=== PATIENT | female | born 1955 | race Caucasian/White ===

== ENCOUNTER 2018-08-13 10:04 | Emergency (ER) | payer BC, SELFPAY ==
[2018-08-13 10:11] VITALS: BP 124/72; PULSE 88; RESP 18; TEMP 37.2; O2SAT 97
[2018-08-13] MEDS: Normal Saline 1,000 ML 1000 ML IV (10:33)
[2018-08-13] MEDS: Ketorolac 30 MG/ML VIAL 15 MG IM (10:34)
[2018-08-13] MEDS: Ondansetron 4 MG/2 ML VIAL IVP (10:43)
[2018-08-13 10:46] VITALS: BP 131/107; PULSE 73; RESP 20; O2SAT 98
[2018-08-13 10:50] LABS: Abs Immature Grans 0.02 k/cumm (0.0-0.09); Absolute Basophil Count 0.04 k/cumm (0.0-0.2); Absolute Eosinophil Count 0.04 k/cumm (0.0-0.7); Absolute Lymphocyte Count 0.53 k/cumm (1.2-3.4); Absolute Monocyte Count 0.97 k/cumm (0.11-0.7); Absolute Neutrophil Count 5.11 k/cumm (1.2-6.7); Basophils % 0.6; Eosinophils % 0.6; HCT 39.8 % (36.0-46.0); HGB 13.5 g/dL (12.0-15.5); Immature Grans % 0.3; Lymphocytes % 7.9; Mean Corp. HGB Concentration 33.9 g/dL (32.0-36.0); Mean Corpuscular Hemoglobin 29.4 pg (27.0-33.0); Mean Corpuscular Volume 86.7 fL (80-95); Mean Platelet Volume 11.9 fL (8.0-11.0); Monocytes % 14.5; Neutrophils % 76.1; Platelet Count 290 x1000/uL (130-400); RBC 4.59 m/cumm (4.00-5.20); RBC Distribution Width 13.3 % (11.7-14.6); White Blood Cell Count 6.71 k/cumm (4.4-10.8)
[2018-08-13 10:58] LABS: Lipase 153 U/L (73-393)
[2018-08-13 11:06] LABS: ALT 27 U/L (12-78); AST 30 U/L (15-37); Albumin 3.7 g/dL (3.4-5.0); Alkaline Phosphatase 106 U/L (46-116); BUN 10 mg/dL (7-18); Bilirubin, Total 0.4 mg/dL (0.2-1.0); CREATININE 0.67 mg/dL (0.55-1.02); Calcium 9.3 mg/dL (8.5-10.1); Chloride 100 mmol/L (98-107); Glucose 104 mg/dL (70-100); Potassium 4.2 mmol/L (3.5-5.1); Sodium 135 mmol/L (136-145); Total Protein 7.5 g/dL (6.4-8.2)
[2018-08-13 11:13] LABS: Troponin I < 0.02 ng/mL (0.00-0.06)
[2018-08-13 11:22] LABS: D-Dimer 415 ng/mlFEU (<500)
[2018-08-13 11:29] VITALS: BP 108/51; PULSE 77; RESP 18; O2SAT 93
[2018-08-13 12:15] LABS: Bilirubin Negative (Negative); Blood Trace-lysed (Negative); Clarity Clear; Glucose Negative (Negative); Ketones 40 mg/dL (Negative); Leukocyte Esterase Negative (Negative); Nitrite Negative (Negative); Specific Gravity 1.015 (1.005-1.025); Urobilinogen 0.2 EU/dL (Up TO 0.2)
--- NOTE | 2018-08-13 12:16 | ED.GENADUL_ITS ---
Discharge Plan Disposition Patient Disposition: HOME Condition: Good Discharge Details Chief Complaint: GenMedical Clinical Impression: Flu-like symptoms Primary Care Provider: None,None ED Provider: Dilan Skaggs Home Meds and New Rx's Prescriptions: New lidocaine [Lidoderm] 1 PATCH patch 1 patch Topical Q24H Qty: 4 RF: 0 ondansetron HCl [Zofran] 4 mg tablet 4 mg PO TID PRN (Reason: nausea and vomiting) 5 Days Qty: 7 RF: 0 No Action aspirin 325 mg Tablet 325 mg PO DAILY RF: 0 Discharge Instructions Instructions: Viral Syndrome (ED) Additional Instructions: Please take 800 mg of ibuprofen every 6 hours and up to 1000 mg of Tylenol every 6 hours. Please drink 10-12 cups of water per day. If you notice any worsening of your symptoms, or any new symptoms such as vomiting, diarrhea, fever, chills, shortness of breath, chest pain, numbness, weakness, or fainting , please return immediately to the emergency department for reevaluation. Please follow up with your primary care provider as soon as possible for reassessment and reevaluation. As always, it was a pleasure participating in your medical care today. Discharge Data Discharge Date/Time-TO BE ENTERED AT DEPARTURE: 08/13/18 13:16 Medical Decision Making This is a pleasant 8-year-old female who presents with multiple complaints for the last 3 days, signs and symptoms are concerning for influenza or a flulike illness. Initially with the patient's complaint of vomiting in respect to her history of colon cancer and surgery, and was going to get a CT scan of her chest abdomen and pelvis, however the patient refused any imaging, and did not want any further radiation exposure. I discussed with her how I thought that these certainly reasonable in the current scenario, she continued to refuse any imaging. Laboratory workup demonstrated no significant white count, no bandemia, a negative d-dimer, a benign EKG, negative and normal troponin, normal renal function, and a benign urinalysis. Influenza was positive. Patient was given Toradol, Lidoderm patch, and Reglan and had notable and near complete resolution of her symptoms. Since her symptoms have been present for 3 days the patient is not a candidate for Tamiflu. Will recommend continued fluids at home, NSAIDs, and rest. Repeat abdominal exam demonstrates no signs of an acute surgical abdomen. Reassuring vital signs are clinically inconsistent with ACS, PE, severe pneumonia or dissection. Patient will be discharged home with close PCP follow-up. I have extensively reviewed the treatment plan and discharge instructions with the patient. I have addressed all patient concerns at this time. The patient was made aware of what symptoms to monitor for that would warrant a return to the emergency department. Discussed the plan with the patient, they demonstrate verbal understanding and agreement with our assessment and plan at this time. EKG 10: 17 Rate 90, sinus rhythm, intervals normal, no ST elevations or depressions, no Q waves, single T wave inversion in V1. No other abnormalities. No evidence of STEMI. HPI General Date/Time Provider Initiated Documentation: 08/13/18 10:13 . HPI Narrative: This is a 62-year-old female with a past medical history of colon cancer 2 years ago, with subsequent surgery but no chemotherapy or radiation. Cardiac catheterization 2 years ago with no evidence of blockage or need for stenting, who presents today for evaluation of multiple multiple complaints. Patient is complaining of aches, cough, fever, vomiting, diarrhea, back pain, abdominal pain, sore joints, fatigue, decreased appetite, anxiety, and cough. Although the patient has had 1-2 episodes of vomiting, she has been able to eat and drink well today. She denies any hematochezia, melena, acholic stool, hemoptysis, severe chest pain, numbness tingling or weakness. She denies any severe neck pain. Denies PE risk factors such as recent long car rides, immobilization, recent surgery, prior history of DVT or PE, family history of PE or DVT, morbid obesity, exogenous estrogen and smoking, hemoptysis. The patient denies any headache red flags of worst headache of life, thunderclap headache, concerning family history of polycystic kidney disease, Marfan syndrome, Isaías-Danlos syndrome, abdominal aortic aneurysm, aortic dissection, or intracranial aneurysm. Patient has not gotten her influenza shot. She denies any other modifying factors. She has not taken any Tylenol or Motrin yet as she did not want to overdose with her aspirin. Related Data Home Medications Medication Instructions Recorded Confirmed aspirin 325 mg PO DAILY 08/13/18 08/13/18 lidocaine [Lidoderm] 1 patch TOPICAL Q24H #4 patch 08/13/18 ondansetron HCl [Zofran] 4 mg PO TID PRN 5 Days #7 tab 08/13/18 Previous Rx's Medication Instructions Recorded lidocaine [Lidoderm] 1 patch TOPICAL Q24H #4 patch 08/13/18 ondansetron HCl [Zofran] 4 mg PO TID PRN 5 Days #7 tab 08/13/18 Allergies Allergy/AdvReac Type Severity Reaction Status Date / Time Sulfa (Sulfonamide Allergy Unverified 08/13/18 10:25 Antibiotics) General Stated Complaint: GenMedical LUDIN: 3 Review of Systems Review of Systems All systems reviewed & are unremarkable except as noted in HPI and below PFSH Social History Smoking/Tobacco Use Status: Current every day Exam Narrative Exam Narrative: 1.Const: Well-nourished, Well-developed, appearing stated age 2.Eyes: PERRL, no conjunctival injection, and symmetrical lids. 3.ENT: Atraumatic external nose and ears. Moist MM. Neck: Symmetric, trachea midline, No thyromegaly. Patient demonstrates good movement of cervical neck. There is no nuchal rigidity, no nuchal tenderness. Patient is able to flex the neck without any difficulty or significant pain. Negative Kernig's and Brudzinski sign. 4.CVS: +S1/S2, No murmurs or gallops. Peripheral pulses 2+ and equal in all extremities. Brisk capillary refill in all extremities. 5.RESP: Unlabored respiratory effort. Clear to auscultation bilaterally. No wheezes rales or rhonchi 6.GI: Soft, Nontender/Nondistended, No hepatosplenomegaly. No guarding or rebound. Previous abdominal scars. No evidence of an acute surgical abdomen 7.MSK: Normocephalic/Atraumatic, Extremities w/o deformity or ttp No cyanosis or clubbing, Normal movement of all extremities 8.Skin: Warm, Dry. No rashes or lesions. 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 Sensation grossly intact, no focal neurologic deficits. 10.Psych: (AAO) x3. Appropriate mood and affect Course Vital Signs Temperature 37.2 C 08/13/18 10:11 Pulse 88 08/13/18 10:11 Respiratory Rate 18 08/13/18 10:11 Blood Pressure 124/72 08/13/18 10:11 Pulse Oximetry 97 08/13/18 10:11 Temperature 37.2 C 08/13/18 10:11 Temperature Source Temporal Artery Scan 08/13/18 10:11 Pulse 77 08/13/18 11:29 Respiratory Rate 18 08/13/18 11:29 Respiratory Effort Non-Labored 08/13/18 11:32 Blood Pressure 108/51 L 08/13/18 11:29 Blood Pressure Position Supine 08/13/18 10:11 Pulse Oximetry 93 L 08/13/18 11:29 Oxygen Delivery Method Room Air 08/13/18 10:46 Oxygen Flow Rate 0 08/13/18 10:46 Pain Level 10 08/13/18 10:46 Lab/Test Results Lab/Test Results: 08/13/18 10:30 Nasopharynx Influenza Types A,B Antigen - Final Laboratory Tests Range/Units 08/13/18 08/13/18 08/13/18 10:30 10:30 10:30 WBC (4.4-10.8) k/cumm 6.71 RBC (4.00-5.20) m/cumm 4.59 Hgb (12.0-15.5) g/dL 13.5 Hct (36.0-46.0) % 39.8 MCV (80-95) fL 86.7 MCH (27.0-33.0) pg 29.4 MCHC (32.0-36.0) g/dL 33.9 RDW (11.7-14.6) % 13.3 Plt Count (130-400) x1000/uL 290 MPV (8.0-11.0) fL 11.9 H Immature Gran % 0.3 Neutrophils % 76.1 Lymphocytes % 7.9 Monocytes % 14.5 Eosinophils % 0.6 Basophils % 0.6 Absolute Neutrophils (1.2-6.7) k/cumm 5.11 Absolute Lymphocytes (1.2-3.4) k/cumm 0.53 L Absolute Monocytes (0.11-0.7) k/cumm 0.97 H Absolute Eosinophils (0.0-0.7) k/cumm 0.04 Absolute Basophils (0.0-0.2) k/cumm 0.04 D-Dimer (<500) ng/mlFEU 415 Sodium (136-145) mmol/L 135 L Potassium (3.5-5.1) mmol/L 4.2 Chloride (98-107) mmol/L 100 Carbon Dioxide (21.0-32.0) mmol/L 23.0 Anion Gap (3-11) mmol/L 12.0 H BUN (7-18) mg/dL 10 Creatinine (0.55-1.02) mg/dL 0.67 Estimated GFR/1.73 m2 (mL/min/1.73m2) >= 60.00 Glucose (70-100) mg/dL 104 H Calcium (8.5-10.1) mg/dL 9.3 Total Bilirubin (0.2-1.0) mg/dL 0.4 AST (15-37) U/L 30 ALT (12-78) U/L 27 Alkaline Phosphatase (46-116) U/L 106 Troponin I (0.00-0.06) ng/mL < 0.02 Total Protein (6.4-8.2) g/dL 7.5 Albumin (3.4-5.0) g/dL 3.7 Lipase (73-393) U/L Range/Units 08/13/18 10:30 WBC (4.4-10.8) k/cumm RBC (4.00-5.20) m/cumm Hgb (12.0-15.5) g/dL Hct (36.0-46.0) % MCV (80-95) fL MCH (27.0-33.0) pg MCHC (32.0-36.0) g/dL RDW (11.7-14.6) % Plt Count (130-400) x1000/uL MPV (8.0-11.0) fL Immature Gran % Neutrophils % Lymphocytes % Monocytes % Eosinophils % Basophils % Absolute Neutrophils (1.2-6.7) k/cumm Absolute Lymphocytes (1.2-3.4) k/cumm Absolute Monocytes (0.11-0.7) k/cumm Absolute Eosinophils (0.0-0.7) k/cumm Absolute Basophils (0.0-0.2) k/cumm D-Dimer (<500) ng/mlFEU Sodium (136-145) mmol/L Potassium (3.5-5.1) mmol/L Chloride (98-107) mmol/L Carbon Dioxide (21.0-32.0) mmol/L Anion Gap (3-11) mmol/L BUN (7-18) mg/dL Creatinine (0.55-1.02) mg/dL Estimated GFR/1.73 m2 (mL/min/1.73m2) Glucose (70-100) mg/dL Calcium (8.5-10.1) mg/dL Total Bilirubin (0.2-1.0) mg/dL AST (15-37) U/L ALT (12-78) U/L Alkaline Phosphatase (46-116) U/L Troponin I (0.00-0.06) ng/mL Total Protein (6.4-8.2) g/dL Albumin (3.4-5.0) g/dL Lipase (73-393) U/L 153
[2018-08-13 12:32] LABS: WBC Negative HPF (0-5)
[2018-08-13 12:33] LABS: Bacteria Few HPF (Negative); C & S Indicated? No; Casts Negative LPF (Negative); Crystals Negative HPF (Negative); Epithelial Cells Rare HPF (Negative); Mucus Trace (Negative); Other Cells Rare Renal (Negative)
[2018-08-13 12:52] VITALS: BP 115/76; PULSE 100; RESP 18; O2SAT 96
[2018-08-13] MEDS: Lidocaine 5% Patch 1 PATCH TP (12:53)
[2018-08-13] MEDS: Dexamethasone 10 MG/ML VIAL IVP (12:54)
[2018-08-13] MEDS: Metoclopramide 10 MG/2 ML VIAL IVP (12:55)
--- NOTE | 2018-08-13 13:08 | NUR.NOTE ---
Nursing Note: Pt medicated as ordered, resting in bed.
== END 2018-08-13 13:16 | disposition home or self-care (01) ==
PROVIDERS: Emergency Provider Student in an Organized Health Care Education/Training Program
DX: J10.89 Influenza due to other identified influenza virus with other manifestations (principal); Z53.29 Procedure and treatment not carried out because of patient's decision for other reasons
CPT/HCPCS: 36415; 80053; 83690; 87449; 93005; 96361; 96372; 96374; 96375; 99284; 81003; 81015; 84484; 85025; 85379; 93010; J1100; J1885; J2405; J2765

== ENCOUNTER 2020-08-19 12:01 | Emergency (ER) | payer BC, SELFPAY ==
[2020-08-19] VITALS (17 sets, daily range): BP systolic 108–125; BP diastolic 62–76; PULSE 65–91; RESP 14–25; TEMP 36.8; O2SAT 98–100
--- NOTE | 2020-08-19 12:00 | RT.EKG_ITS ---
APPROVED REPORT Exam: Resting ECG Patient Location: E HR:80 bpm ECG Measurements Heart Rate 80 AXIS VA 142 P 38 QRSd 83 QRS 70 QT 368 T 58 QTc 425 Conclusion Sinus rhythm...normal P axis, V-rate 60- 99
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
[2020-08-19] MEDS: Aspirin 81 MG CHEW 324 MG CH (12:31)
[2020-08-19] MEDS: Normal Saline 1,000 ML 125 ML IV (12:32)
[2020-08-19 12:42] LABS: Abs Immature Grans 0.04 10^3/uL (0.0-0.06); Absolute Basophil Count 0.05 10^3/uL (0.0-0.2); Absolute Eosinophil Count 0.18 10^3/uL (0.0-0.7); Absolute Lymphocyte Count 2.82 10^3/uL (1.2-3.4); Basophils % 0.4; Eosinophils % 1.5; HCT 43.9 % (36.0-46.0); HGB 14.9 g/dL (11.2-15.7); Immature Grans % 0.3; Lymphocytes % 24.1; MCH 29.9 pg (27.0-33.0); MCHC 33.9 % (32.0-36.0); MCV 88.2 fL (80-95); MPV 11.7 fL (8.0-11.0); Monocytes % 7.7; Nucleated RBC 0 %; Platelet Count 364 10^3/uL (130-400); RBC 4.98 10^6/uL (3.93-5.22); RDW 12.9 % (11.7-14.6); RDW-SD 41.5 fL; WBC 11.72 10^3/uL (4.4-10.8)
[2020-08-19 12:44] LABS: Absolute Neutrophil Count 7.74 10^3/uL (1.2-6.7)
[2020-08-19 12:47] LABS: PTT Activated 26.8 sec (21.0-27.5); Prothrombin Time 10.2 sec (9.3-11.0)
[2020-08-19 13:03] LABS: D-Dimer 305 ng/mlFEU (<500)
[2020-08-19 13:17] LABS: ALT 25 U/L (14-59); AST 21 U/L (15-37); Albumin 3.9 g/dL (3.4-5.0); Alkaline Phosphatase 109 U/L (46-116); Anion Gap 9.8 mmol/L (3-11); BUN 17 mg/dL (7-18); Bilirubin, Total 0.6 mg/dL (0.2-1.0); CO2 28.2 mmol/L (21.0-32.0); CREATININE 0.8 mg/dL (0.55-1.02); Calcium 9.2 mg/dL (8.5-10.1); Chloride 102 mmol/L (98-107); Glucose 110 mg/dL (74-106); NT-proBNP 50 pg/mL (<300); Potassium 3.9 mmol/L (3.5-5.1); Sodium 140 mmol/L (136-145); Total Protein 7.7 g/dL (6.4-8.2); Troponin I < 0.05 ng/mL (<0.06)
== END 2020-08-19 13:35 | disposition left against medical advice (07) ==
LOC: ER 13:10
PROVIDERS: Emergency Provider Physician Assistant
DX: R07.89 Other chest pain (principal); Z53.29 Procedure and treatment not carried out because of patient's decision for other reasons; F17.210 Nicotine dependence, cigarettes, uncomplicated
CPT/HCPCS: 80053; 93005; 99284; 81373; 83735; 83880; 84484; 85025; 85379; 85610; 85730; 93010

== ENCOUNTER 2022-03-09 19:37 | Outpatient (REF) | payer MEDICAID, SELFPAY | END 2022-03-09 19:38 | disposition home or self-care (01) | LOC: LBN 19:37 | PROVIDERS: Visit Provider Advanced Practice Midwife | DX: N89.8 Other specified noninflammatory disorders of vagina (principal); R30.0 Dysuria; Z11.3 Encounter for screening for infections with a predominantly sexual mode of transmission | CPT/HCPCS: 87491; 87591; 87480; 87510; 87660 ==

== ENCOUNTER 2022-11-03 10:50 | Emergency (ER) | payer MEDICAID, SELFPAY ==
[2022-11-03] VITALS (31 sets, daily range): BP systolic 116–149; BP diastolic 64–103; PULSE 70–105; RESP 11–30; TEMP 36.8; O2SAT 95–99
--- NOTE | 2022-11-03 10:45 | RT.EKG_ITS ---
APPROVED REPORT Exam: Resting ECG Reason for Exam: chest pain Patient Location: E HR:84 bpm ECG Measurements Heart Rate 84 AXIS WI 161 P 79 QRSd 91 QRS 67 QT 367 T 59 QTc 434 Conclusion Sinus rhythm...normal P axis, V-rate 60- 99 Right atrial enlargement...P>0.25mV 2 lds or<-0.24mV aVR/aVL Physician: no stemi
--- NOTE | 2022-11-03 11:00 | RT.EKG_ITS ---
APPROVED REPORT Exam: Resting ECG Reason for Exam: chest pain. Initial EKG unusable Patient Location: E HR:80 bpm ECG Measurements Heart Rate 80 AXIS FL 154 P 58 QRSd 89 QRS 70 QT 377 T 68 QTc 435 Conclusion Sinus rhythm...normal P axis, V-rate 60- 99
--- NOTE | 2022-11-03 11:00 | DI.RAD_ITS ---
Exam(s) XR CHEST 2V PA LATERAL EXAM: XR CHEST 2V PA LATERAL CLINICAL HISTORY: chest pain TECHNIQUE: 2D digital imaging was performed of the chest. Two images were obtained. PA and lateral views were obtained. COMPARISON: No exams were available for comparison FINDINGS: MEDIASTINUM: Normal. HEART: Normal. PULMONARY VASCULATURE: Normal. LUNGS: Clear. PLEURAL SPACE: There is a small left pleural effusion. BONE:Within normal limits for the patient's age. OTHER FINDINGS:Normal. IMPRESSION: Small left pleural effusion. Otherwise unremarkable examination. DATA REPOSITORY: RADIATION DOSE DELIVERED:
--- NOTE | 2022-11-03 11:07 | W.ED.GENAD ---
Discharge Plan Discharge Details Chief Complaint: Chest Pain Primary Care Provider: Unknown,Unknown ED Provider: Poncho Rehman Home Meds and New Rx's Prescriptions: No Action No Known Home Meds Medical Decision Making 66-year-old lady presented to the emergency room with left-sided chest pain. Nonischemic EKG with normal troponin. Given elevation of D-dimer CT scan was ordered to rule out PE. No PE seen on CAT scan. She does have a small left pleural effusion. She is diagnosed with some pleurisy as well has some atelectasis of the left side. She will be sent home with an incentive spirometer. These findings were reviewed with the patient. She understands that she needs to use his incentive spirometer and that he needs to take some Tylenol for the pain. HPI General Date/Time Provider Initiated Documentation: 11/03/22 10:51. HPI Narrative: 66-year-old presents to the emergency room with left-sided chest pain, the pain is located underneath her left breast along the ribs. The pain has been there for at least 4 to 5 days. Worse with coughing and deep breathing. The pain is constant with movement of the exacerbation. She has only taken Tylenol for the pain which he states does not work. This is also associated with cough for 1 week. The cough is productive. No quantified fevers but associated with some chills. No abdominal pain. This is also associated with decreased appetite. She states she has not had a good meal in a couple days. History of smoking but has been cutting down. The patient does not have a primary care doctor. She continues self in good health. Does not take any medication. Related Data Home Medications Medication Instructions Recorded Confirmed Unknown [No Known Home Meds] 08/19/20 11/03/22 Allergies Allergy/AdvReac Type Severity Reaction Status Date / Time Sulfa (Sulfonamide Allergy Unverified 11/03/22 11:48 Antibiotics) General Stated Complaint: Chest Pain LUDIN: 2 Review of Systems Narrative: 10 point review of systems is negative unless otherwise specified in the HPI. PFSH All Active Problems (Updated 03/09/22 @ 13:54 by Jamaica Cali CNM) Discharge from the vagina (Acute) Decreased urine volume (Acute) Surgical History (Updated 03/09/22 @ 13:53 by Jamaica L Karely, CNM) History of colon surgery patient reports cancer history and that surgery was at [place]. Uncertain of date. Social History Smoking/Tobacco Use Status: Current every day Tobacco Type: cigarettes Smoking risk assessment performed?: Yes Alcohol Intake: never Drug use: Never Substance use type: does not use Do you feel safe at home: Yes Do you feel safe in your relationship?: Yes Exam Narrative Exam Narrative: General: A,A Ox3, Calm, no apparent distress, well developed, pleasant and cooperative Head Size/Shape: normocephalic, atraumatic Eyes Pupils: PERRLA Extraocular Mobility: intact and symmetrical Conjunctiva: non-injected, anicteric, no discharge Ears, Nose, Throat Nares: patent bilaterally Oral Cavity: moist Neck: no masses, no crepitus Lymph Nodes: no cervical lymphadenopathy Respiratory Respiratory Effort: no dyspnea Auscultation: clear to auscultation bilaterally, normal breath sounds, no wheezing, no rales/crackles Cardiovascular Heart Auscultation: regular rate and rhythm, normal S1, normal S2, no murmurs, no rubs, no gallops, Pulse Quality: +2 equal bilaterally, location(s) radial Abdomen Inspection and Palpation: soft, non-tender, non-distended, no hepatosplenomegaly Musculoskeletal System Joints, Bones, and Muscles: no deformities Extremities: warm and well-perfused, no cyanosis, capillary refill <2 seconds Skin Skin Inspection: no rash, no lesions, no bruising Neurological Motor: normal tone, normal strength, moving all extremities equally Reflexes: deep tendon reflexes 2+ bilaterally, no clonus Psychiatric: good insight, good judgement, normal mood and affect Course Vital Signs Vital signs: Vital Signs Temperature 36.8 C 11/03/22 10:53 Pulse 88 11/03/22 10:53 Respiratory Rate 14 11/03/22 10:53 Blood Pressure 139/66 11/03/22 10:53 Pulse Oximetry 99 11/03/22 10:53 Temperature 36.8 C 11/03/22 10:53 Temperature Source Oral 11/03/22 10:53 Pulse 88 11/03/22 10:53 Respiratory Rate 14 11/03/22 10:53 Blood Pressure 139/66 11/03/22 10:53 Pulse Oximetry 99 04/29/23 10:53 Oxygen Delivery Method Room Air 11/03/22 10:53 Oxygen Flow Rate 0 11/03/22 10:53 Pain Level 10 11/03/22 10:53
[2022-11-03] MEDS: Ketorolac 15 MG/ML VIAL IVP (11:21)
[2022-11-03] MEDS: Normal Saline 1,000 ML 1000 ML IV (11:21)
[2022-11-03 11:25] LABS: Abs Immature Grans 0.07 10^3/uL (0.0-0.06); Absolute Basophil Count 0.05 10^3/uL (0.0-0.2); Absolute Eosinophil Count 0.03 10^3/uL (0.0-0.7); Absolute Neutrophil Count 12.32 10^3/uL (1.2-6.7); Basophils % 0.3; Eosinophils % 0.2; HCT 45.1 % (36.0-46.0); HGB 15.3 g/dL (11.2-15.7); Immature Grans % 0.4; Lymphocytes % 16.2; MCH 29.6 pg (27.0-33.0); MCHC 33.9 % (32.0-36.0); MCV 87 fL (80-95); MPV 11.6 fL (8.0-11.0); Monocytes % 7.2; Neutrophils % 75.7; Platelet Count 389 10^3/uL (130-400); RBC 5.17 10^6/uL (3.93-5.22); RDW 13.1 % (11.7-14.6); WBC 16.28 10^3/uL (4.4-10.8)
[2022-11-03 11:33] LABS: Absolute Lymphocyte Count 2.64 10^3/uL (1.2-3.4); Absolute Monocyte Count 1.17 10^3/uL (0.1-0.8)
[2022-11-03 11:42] LABS: Anion Gap 10.8 mmol/L (3-11); BUN 14 mg/dL (7-18); CO2 26.2 mmol/L (21.0-32.0); CREATININE 0.8 mg/dL (0.55-1.02); Chloride 102 mmol/L (98-107); Estimated GFR 82.23 (mL/min/1.73m2); Glucose 101 mg/dL (74-106); Potassium 4.3 mmol/L (3.5-5.1); Sodium 139 mmol/L (136-145); Troponin I < 50 ng/L (<or=60)
--- NOTE | 2022-11-03 11:51 | DI.VRAD_ITS ---
PROCEDURE INFORMATION: Exam: XR Chest Exam date and time: 11/03/2022 11:44 AM Age: 66 years old Clinical indication: Pain; Chest pressure TECHNIQUE: Imaging protocol: Radiologic exam of the chest. Views: 2 views. COMPARISON: No relevant prior studies available. FINDINGS: Lungs: No focal consolidation. Pleural spaces: Blunting of the posterior right costophrenic sulcus, may be scarring or small effusion. Heart/Mediastinum: Unremarkable. No cardiomegaly. Bones/joints: Unremarkable. IMPRESSION: Blunting of the posterior right costophrenic sulcus, may be scarring or small effusion. Dictated and Authenticated by: Haydee Alfaro MD. Ordering:JACK Isaac MD
--- NOTE | 2022-11-03 12:15 | DI.CT_ITS ---
Exam(s) CT CHEST PE CTA EXAM: CT CHEST PE CTA CLINICAL HISTORY: chest pain. TECHNIQUE: Imaging Protocol: Axial CT angiography was performed with multi-slice acquisition and mu lti-planar and/or 3D reconstructions. CONTRAST MATERIAL: Intravenous: Omnipaque 350 contrast volume:100 mL COMPARISON: CR,XR XR CHEST 2V PA LATERAL from 11/03/2022 FINDINGS: Tracheobronchial tree: Patent where visualized. Pulmonary parenchyma: Mild centrilobular emphysema. There is a small left pleural effusion and subja cent infiltrate. The lungs are otherwise clear. Pulmonary Arteries: No evidence of filling defect to suggest pulmonary emboli. Mediastinum and Deyanira: No dominant adenopathy or fluid collection. The esophagus is unremarkable. Visualized thyroid gland: Unremarkable. Pleura: No right pleural effusion. No pneumothorax. Heart: The heart is not dilated. No coronary artery calcifications are seen. No pericardial effusion. Aorta: Thoracic aorta non-dilated. No evidence of dissection. Atherosclerosis is present. Upper abdomen: Unremarkable. Soft tissues: Unremarkable. Bones: Within normal limits for the patient's age. IMPRESSION: 1. No evidence of pulmonary embolism, thoracic aortic dissection or aneurysm. 2. Small left pleural effusion and subjacent infiltrate which may represent atelectasis or pneumonia. Please correlate clinically. RADIATION DOSE DELIVERED: 289.97mGy.cm Total DLP DATA REPOSITORY: All CT scans at this facility are submitted to the National Radiology Data Registry (NRDR) Dose Index Registry (DIR) with the [employer] (ACR). RADIATION OPTIMIZATION: All CT scans at this facility use at least one of these dose optimization te chniques: automated exposure control; mA and/or kV adjustment per patient size (includes targeted exa ms where dose is matched to clinical indication); or iterative reconstruction.
[2022-11-03 12:24] LABS: D-Dimer 580 ng/mlFEU (<500)
[2022-11-03] MEDS: Omnipaque 350 MG/ML 500 ML BTL-Imaging package 100 ML IJ (12:36)
[2022-11-03] MEDS: Normal Saline - Diluent 50 ML VIAL IV (12:38)
[2022-11-03] MEDS: Normal Saline Flush 10 ML SYR IVP (12:38)
--- NOTE | 2022-11-03 13:46 | DI.VRAD_ITS ---
PROCEDURE INFORMATION: Exam: CTA Chest With Contrast Exam date and time: 11/03/2022 12:39 PM Age: 66 years old Clinical indication: Other: Chest pain TECHNIQUE: Imaging protocol: Computed tomographic angiography of the chest with contrast. 3D rendering (Not supervised by radiologist): MIP and/or 3D reconstructed images were created by the technologist. Contrast material: OMNIPQUE 350; Contrast volume: 100 ml; Contrast route: INTRAVENOUS (IV); COMPARISON: CR XR CHEST 2V PA LATERAL 11/03/2022 11:44 AM FINDINGS: Pulmonary arteries: Negative for acute pulmonary embolism. Aorta: Unremarkable. No aortic aneurysm. No aortic dissection. Lungs: See Pleural spaces finding. Pleural spaces: Small LEFT pleural effusion with adjacent atelectasis. Heart: Unremarkable. No cardiomegaly. No pericardial effusion. Lymph nodes: Unremarkable. No enlarged lymph nodes. Bones/joints: Unremarkable. No acute fracture. Soft tissues: Unremarkable. IMPRESSION: 1. Small LEFT pleural effusion with adjacent atelectasis. 2. Negative for acute pulmonary embolism. Dictated and Authenticated by: Haydee Alfaro MD. Ordering:JACK Isaac MD
--- NOTE | 2022-11-03 14:01 | NUR.NOTE ---
Nursing Note: Referral given to Care Management for needs PCP, pleurisy/within 1 week.
--- NOTE | 2022-11-04 14:31 | NUR.NOTE ---
Accessed chart to determine orders for EKG and to determine whether or not one needs to be cancelled. Nursing Note:
== END 2022-11-03 14:14 | disposition home or self-care (01) ==
PROVIDERS: Emergency Provider Emergency Medicine
DX: J98.11 Atelectasis (principal); J90 Pleural effusion, not elsewhere classified; F17.210 Nicotine dependence, cigarettes, uncomplicated
CPT/HCPCS: 36415; 71275; 80048; 93005; 96361; 96374; 99285; 71046; 84484; 85025; 85379; 93010; 99284; J1885

== ENCOUNTER 2025-03-11 09:35 | Emergency (ER) | payer MEDICARE, MEDICAID, SELFPAY ==
[2025-03-11 09:39] VITALS: BP 151/89; PULSE 79; RESP 18; TEMP 36.6; O2SAT 98
--- NOTE | 2025-03-11 10:09 | DI.RAD_ITS ---
Exam(s) XR RIBS RT W PA LAT CHEST CLINICAL HISTORY: chest pain right. COMPARISON: CT CT CHEST PE CTA from 11/03/2022 CR,XR XR CHEST 2V PA LATERAL from 11/03/2022 TECHNIQUE:: PA and lateral views of the chest and four views of the right ribs were performed. FINDINGS: LUNGS:Clear. No pleural abnormality seen. HEART: Normal size. MEDIASTINUM: Normal. BONES: No displaced rib fracture is seen. No bony destructive lesion is seen. IMPRESSION: 1. Unremarkable radiographic appearance of the right ribs. 2. No acute pulmonary findings.
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
[2025-03-11 11:30] VITALS: BP 124/74; PULSE 80; RESP 12; O2SAT 98
== END 2025-03-11 11:30 | disposition home or self-care (01) ==
PROVIDERS: Emergency Provider Student in an Organized Health Care Education/Training Program
DX: R07.81 Pleurodynia (principal)
CPT/HCPCS: 99284; 99283; 71046; 71100